=== PATIENT | male | born 1990 | race Caucasian/White ===

== ENCOUNTER 2017-10-18 10:53 | Emergency (ER) | payer SELFPAY ==
[2017-10-18] MEDS: LIDOCAINE WITH 8.4% SOD BICARB 3 ML DISP.SYRIN. INJ (13:21)
[2017-10-18] MEDS: DIPHTH,PERTUSS(ACELL),TET TOX 0.5 ML DISP.SYRIN. VAX IM (13:21)
== END 2017-10-18 14:14 | disposition home or self-care (01) ==
LOC: ER 14:14
DX: L03.112 Cellulitis of left axilla (principal); F12.10 Cannabis abuse, uncomplicated; Z86.14 Personal history of Methicillin resistant Staphylococcus aureus infection
CPT/HCPCS: 10060; 90471; 90715; 99283-25